=== PATIENT | male | born 1980 | race Two or more races ===

== ENCOUNTER 2020-12-12 23:27 | Inpatient (IN) | payer OTHER ==
[~2020-12-12] VITALS: Ht 177.8 cm; Wt 137.5 kg
--- NOTE | 2020-12-13 00:32 | NUR ---
PA at triage seeing pt while VS being reassessed.
[2020-12-13] MEDS ORDERED: MAALOX/HYOSCYAMINE/LIDOCAINE 45 ML BTL ONE (00:44)
[2020-12-13] MEDS ORDERED: ONDANSETRON ODT 4 MG ONE (00:44)
[2020-12-13] MEDS ORDERED: MAALOX/HYOSCYAMINE/LIDOCAINE 45 ML BTL PO ONE (01:00)
[2020-12-13] MEDS ORDERED: ONDANSETRON ODT 4 MG PO ONE (01:00)
[2020-12-13 01:02] LABS: BASOPHILS % (AUTO) 0 % (0-1); EOSINOPHILS % (AUTO) 0 % (1-7); LYMPHOCYTES % (AUTO) 8 % (22-44); MEAN CORPUSCULAR HGB CONC 33.1 g/dL (33.2-36.2); MEAN PLATELET VOLUME 8.9 fL (7.4-10.4); MONOCYTES % (AUTO) 3 % (2-9); NEUTROPHILS % (AUTO) 89 % (42-75); PLATELET COUNT 267 x10^3/uL (130-400); RED CELL DISTRIBUTION WIDTH 13.6 % (9.4-14.8)
[2020-12-13 01:04] LABS: MD NO
[2020-12-13 01:11] LABS: ALANINE AMINOTRANSFERASE 128 U/L (12-78); ALBUMIN 3.9 g/dL (3.4-5.0); ANION GAP 4 mmol/L (5-15); CALCIUM 9.4 mg/dL (8.5-10.1); CHLORIDE 107 mmol/L (98-107); CREATININE 0.96 mg/dL (0.7-1.3)
[2020-12-13 01:15] LABS: ALKALINE PHOSPHATASE 180 U/L (45-117); BILIRUBIN,TOTAL 1.3 mg/dL (0.2-1.0); TOTAL PROTEIN 8.4 g/dL (6.4-8.2)
[2020-12-13] MEDS ORDERED: SODIUM CHLORIDE 0.9% 1,000ML IVBOLUS ONE (01:30)
[2020-12-13 01:31] LABS: MICROSCOPIC INDICATED
[2020-12-13] MEDS ORDERED: ONDANSETRON 2MG/ML, 2ML ONE (02:58)
[2020-12-13] MEDS ORDERED: MORPHINE SULFATE 4 MG/ML, 1ML ONE (02:58)
[2020-12-13] MEDS ORDERED: ONDANSETRON ODT 4 MG PO PRN (03:00)
[2020-12-13] MEDS ORDERED: BISACODYL 10 MG SUPP PR PRN (03:00)
[2020-12-13] MEDS ORDERED: PROMETHAZINE 25 MG/ML, 1ML IM PRN (03:00)
[2020-12-13] MEDS ORDERED: ENOXAPARIN 40 MG/0.4 ML SQ SCH (03:00)
[2020-12-13] MEDS ORDERED: hydrALAzine 20 MG/ML, 1ML IVPush PRN (03:00)
[2020-12-13] MEDS ORDERED: POLYETHYLENE GLYCOL 17 GM PACKET PO PRN (03:00)
[2020-12-13] MEDS ORDERED: ONDANSETRON 2MG/ML, 2ML IVPush PRN ×2 (03:00)
[2020-12-13] MEDS ORDERED: ONDANSETRON 2MG/ML, 2ML IVPush ONE (03:00)
[2020-12-13] MEDS ORDERED: SODIUM CHLORIDE 0.9% 1,000 ML IV ONE (03:00)
[2020-12-13] MEDS ORDERED: MORPHINE SULFATE 4 MG/ML, 1ML IVPush PRN ×2 (03:00)
--- NOTE | 2020-12-13 03:06 | NUR ---
BREAK RN: PT MEDICATED FOR PAIN. VSS. PT TO BE ADMITTED TO FLOOR. PT PLACED ON 2 L O2 AFTER RECEVING PAIN MEDS. PT HAS NO NEEDS AT THIS TIME
--- NOTE | 2020-12-13 03:16 | NUR ---
report given to maty bagley
[2020-12-13 03:46] VITALS: BP 173/86
[2020-12-13] MEDS: SODIUM CHLORIDE 0.9% 1,000 ML IV SCH ×4 (04:09→19:56)
[2020-12-13] MEDS: morphine SULFATE 10 MG/ML, 1ML IVPush PRN ×4 (04:20→22:53)
[2020-12-13 07:22] VITALS: BP 169/91
[2020-12-13] MEDS: SENNA/DOCUSATE TABLET PO SCH (07:39)
[2020-12-13 12:25] VITALS: BP 147/86
[2020-12-13 18:58] VITALS: BP 154/85
[2020-12-13] MEDS: ENOXAPARIN 30 MG/0.3 ML SQ SCH (22:04)
[2020-12-14] MEDS: SODIUM CHLORIDE 0.9% 1,000 ML IV SCH ×2 (00:53→06:09)
[2020-12-14 00:54] VITALS: BP 149/74
[2020-12-14] MEDS: morphine SULFATE 10 MG/ML, 1ML IVPush PRN ×4 (02:47→21:02)
[2020-12-14 05:19] LABS: BASOPHILS % (AUTO) 0 % (0-1); EOSINOPHILS % (AUTO) 0 % (1-7); LYMPHOCYTES % (AUTO) 13 % (22-44); MEAN CORPUSCULAR HGB CONC 33.3 g/dL (33.2-36.2); MEAN PLATELET VOLUME 9.1 fL (7.4-10.4); MONOCYTES % (AUTO) 7 % (2-9); NEUTROPHILS % (AUTO) 80 % (42-75); PLATELET COUNT 212 x10^3/uL (130-400); RED BLOOD COUNT 4.82 x10^6/uL (4.38-5.82); RED CELL DISTRIBUTION WIDTH 13.6 % (9.4-14.8)
[2020-12-14 05:22] LABS: MD NO
[2020-12-14 05:32] LABS: ALBUMIN 3.3 g/dL (3.4-5.0); ANION GAP 3 mmol/L (5-15); CALCIUM 8.5 mg/dL (8.5-10.1); CHLORIDE 110 mmol/L (98-107)
[2020-12-14 05:41] LABS: ALANINE AMINOTRANSFERASE 91 U/L (12-78); ALKALINE PHOSPHATASE 114 U/L (45-117); BILIRUBIN,TOTAL 1.1 mg/dL (0.2-1.0); CHOL/HDL RATIO 3.6; CHOLESTEROL, TOTAL 160 mg/dL (140-239); CREATININE 0.65 mg/dL (0.7-1.3); HDL CHOL % 28 % (26-37); HDL CHOLESTEROL (DIRECT) 44 mg/dL (40-60); LDL CHOLESTEROL,CALCULATED 101 mg/dL (54-169); LDL/HDL RATIO 2.3 (0.5-3.0); TOTAL PROTEIN 7.5 g/dL (6.4-8.2); TRIGLYCERIDES 75 mg/dL (50-200); VLDL CHOLESTEROL 15 mg/dL (0-25)
[2020-12-14 06:58] VITALS: BP 148/87
[2020-12-14] MEDS: ENOXAPARIN 30 MG/0.3 ML SQ SCH ×2 (07:30→21:02)
[2020-12-14] MEDS: SENNA/DOCUSATE TABLET PO SCH (07:30)
[2020-12-14] MEDS: LACTATED RINGERS 1,000 ML IV SCH ×2 (08:37→16:00)
[2020-12-14] MEDS ORDERED: OMNIPAQUE 350 MG/ML, 50 ML BOTTLE ONE (11:02)
[2020-12-14] MEDS ORDERED: LABETALOL 5MG/ML, 20ML IV PRN (11:30)
[2020-12-14] MEDS ORDERED: OXYcodone 5 MG/5 ML ORAL.SOL UDC PO PRN (11:30)
[2020-12-14] MEDS ORDERED: ACETAMINOPHEN 325 MG TABLET PO PRN (11:30)
[2020-12-14] MEDS ORDERED: morphine SULFATE 10 MG/ML, 1ML IVPush PRN (11:30)
[2020-12-14] MEDS ORDERED: ONDANSETRON 2MG/ML, 2ML IVPush PRN (11:30)
[2020-12-14] MEDS ORDERED: FENTANYL PF 100 MCG/2ML IV PRN (11:30)
[2020-12-14] MEDS ORDERED: MEPERIDINE/PF 25MG/0.5ML IVPush PRN (11:30)
[2020-12-14] MEDS ORDERED: hydrALAzine 20 MG/ML, 1ML IV PRN (11:30)
[2020-12-14] MEDS ORDERED: HYDROmorphone 1 MG/ML, 1ML INJ IVPush PRN (11:30)
[2020-12-14] MEDS ORDERED: MIDAZOLAM 1 MG/ML, 2ML ONE (11:31)
[2020-12-14] MEDS ORDERED: FENTANYL PF 250 MCG/5ML ONE (11:31)
[2020-12-14] MEDS ORDERED: GLYCOPYRROLATE 0.2MG/1ML, 5ML ONE (11:33)
[2020-12-14] MEDS ORDERED: ROCURONIUM 10MG/ML,5ML ONE (11:33)
[2020-12-14] MEDS ORDERED: PROPOFOL 10 MG/ML, 20ML ONE (11:33)
[2020-12-14] MEDS ORDERED: NEOSTIGMINE 1 MG/ML, 10ML ONE (11:33)
[2020-12-14] MEDS ORDERED: CEFAZOLIN 1,000 MG ONE (11:33)
[2020-12-14] MEDS ORDERED: CHLORHEXIDINE 15 ML UDC ONE (11:50)
[2020-12-14] MEDS ORDERED: DILTIAZEM 5 MG/ML, 5ML ONE (12:38)
[2020-12-14] MEDS ORDERED: SUGAMMADEX 200 MG/2 ML IVPush ONE (12:45)
[2020-12-14] MEDS ORDERED: LABETALOL 5MG/ML, 20ML ONE (13:30)
[2020-12-14 14:58] VITALS: BP 124/92
[2020-12-14] MEDS: CEFTRIAXONE 2 GM in DEXTROSE 5% 50 ML IVPB SCH (16:00)
[2020-12-14] MEDS: DILTIAZEM 30 MG TABLET PO SCH ×2 (16:00→21:03)
[2020-12-14] MEDS: OXYcodone IR 5MG TABLET PO PRN (17:25)
[2020-12-14] MEDS: DOXYCYCLINE 100MG TABLET PO SCH (21:02)
[2020-12-14 21:09] VITALS: BP 132/80
[2020-12-15] MEDS: OXYcodone IR 5MG TABLET PO PRN ×3 (00:10→20:02)
[2020-12-15 01:02] VITALS: BP 164/67
[2020-12-15 01:35] VITALS: BP 133/83
[2020-12-15 07:03] VITALS: BP 139/90
[2020-12-15 07:46] LABS: BASOPHILS % (AUTO) 0 % (0-1); EOSINOPHILS % (AUTO) 1 % (1-7); LYMPHOCYTES % (AUTO) 12 % (22-44); MEAN CORPUSCULAR HEMOGLOBIN 27.9 pg (27.5-34.5); MEAN CORPUSCULAR HGB CONC 33.1 g/dL (33.2-36.2); MEAN PLATELET VOLUME 8.5 fL (7.4-10.4); MONOCYTES % (AUTO) 8 % (2-9); NEUTROPHILS % (AUTO) 79 % (42-75); PLATELET COUNT 201 x10^3/uL (130-400); RED BLOOD COUNT 4.81 x10^6/uL (4.38-5.82); RED CELL DISTRIBUTION WIDTH 13.4 % (9.4-14.8)
[2020-12-15 07:48] LABS: MD NO
[2020-12-15 07:58] LABS: ALANINE AMINOTRANSFERASE 64 U/L (12-78); ALBUMIN 2.8 g/dL (3.4-5.0); ANION GAP 4 mmol/L (5-15); CALCIUM 8.3 mg/dL (8.5-10.1); CHLORIDE 105 mmol/L (98-107)
[2020-12-15 08:01] LABS: ALKALINE PHOSPHATASE 97 U/L (45-117); BILIRUBIN,TOTAL 1.1 mg/dL (0.2-1.0); CREATININE 0.51 mg/dL (0.7-1.3)
[2020-12-15] MEDS: ENOXAPARIN 30 MG/0.3 ML SQ SCH ×2 (08:27→20:01)
[2020-12-15] MEDS: DILTIAZEM 30 MG TABLET PO SCH ×3 (08:27→20:01)
[2020-12-15] MEDS: DOXYCYCLINE 100MG TABLET PO SCH ×2 (08:27→20:01)
[2020-12-15] MEDS: LACTATED RINGERS 1,000 ML IV SCH ×2 (08:28)
[2020-12-15] MEDS: SENNA/DOCUSATE TABLET PO SCH ×2 (08:39→09:00)
[2020-12-15 12:58] VITALS: BP 125/72
[2020-12-15] MEDS ORDERED: CALCIUM CARBONATE 500 MG TAB.CHEW PO PRN (14:00)
[2020-12-15] MEDS: CEFTRIAXONE 2 GM in DEXTROSE 5% 50 ML IVPB SCH (16:14)
[2020-12-15 19:28] VITALS: BP 133/79
[2020-12-16] VITALS (14 sets, daily range): BP systolic 119–176; BP diastolic 74–122
[2020-12-16] MEDS: OXYcodone IR 5MG TABLET PO PRN ×2 (00:23→16:16)
[2020-12-16 07:46] LABS: BASOPHILS % (AUTO) 0 % (0-1); EOSINOPHILS % (AUTO) 3 % (1-7); LYMPHOCYTES % (AUTO) 21 % (22-44); MEAN CORPUSCULAR HEMOGLOBIN 27.9 pg (27.5-34.5); MEAN CORPUSCULAR HGB CONC 33.5 g/dL (33.2-36.2); MEAN PLATELET VOLUME 8.8 fL (7.4-10.4); MONOCYTES % (AUTO) 9 % (2-9); NEUTROPHILS % (AUTO) 68 % (42-75); PLATELET COUNT 256 x10^3/uL (130-400); RED BLOOD COUNT 5.23 x10^6/uL (4.38-5.82); RED CELL DISTRIBUTION WIDTH 13.5 % (9.4-14.8)
[2020-12-16 07:54] LABS: MD NO
[2020-12-16 07:59] LABS: ALANINE AMINOTRANSFERASE 54 U/L (12-78); ALBUMIN 2.9 g/dL (3.4-5.0); ANION GAP 6 mmol/L (5-15); CALCIUM 8.6 mg/dL (8.5-10.1); CHLORIDE 104 mmol/L (98-107); CREATININE 0.54 mg/dL (0.7-1.3)
[2020-12-16 08:01] LABS: ALKALINE PHOSPHATASE 99 U/L (45-117); TOTAL PROTEIN 7.6 g/dL (6.4-8.2)
[2020-12-16] MEDS ORDERED: CEFD300C37 PO (08:30)
[2020-12-16] MEDS ORDERED: DILT30TA33 PO ×2 (08:30)
[2020-12-16] MEDS ORDERED: DOXY100T PO (08:30)
[2020-12-16] MEDS: DILTIAZEM 30 MG TABLET PO SCH (08:40)
[2020-12-16] MEDS: ENOXAPARIN 30 MG/0.3 ML SQ SCH ×2 (08:40→20:20)
[2020-12-16] MEDS: DOXYCYCLINE 100MG TABLET PO SCH ×2 (08:40→20:31)
[2020-12-16] MEDS: SENNA/DOCUSATE TABLET PO SCH (08:41)
[2020-12-16] MEDS ORDERED: BISACODYL 10 MG SUPP PR ONE (09:00)
[2020-12-16] MEDS: DILTIAZEM 120 MG CAP.ER.12H PO SCH ×2 (11:56→22:15)
[2020-12-16] MEDS: CEFTRIAXONE 2 GM in DEXTROSE 5% 50 ML IVPB SCH (16:09)
[2020-12-16] MEDS ORDERED: POTASSIUM CHLORIDE 20 MEQ TAB.ER.PRT PO ONE (22:00)
[2020-12-17] MEDS ORDERED: METOPROLOL 1 MG/ML, 5ML IVPush ONE (00:30)
[2020-12-17 00:49] VITALS: BP 134/96
[2020-12-17] MEDS ORDERED: MELATONIN 5 MG TABLET ONE (01:18)
[2020-12-17 01:21] VITALS: BP 155/102
[2020-12-17 03:02] VITALS: BP 137/95
[2020-12-17 06:08] VITALS: BP 136/87
[2020-12-17] MEDS ORDERED: DILTIAZEM 120 MG CAP.ER.12H PO SCH (09:00)
[2020-12-17] MEDS: SENNA/DOCUSATE TABLET PO SCH (09:00)
[2020-12-17] MEDS: ENOXAPARIN 30 MG/0.3 ML SQ SCH (09:24)
[2020-12-17] MEDS: DOXYCYCLINE 100MG TABLET PO SCH (09:24)
[2020-12-17 11:49] VITALS: BP 145/89
[2020-12-17] MEDS: CEFTRIAXONE 2 GM in DEXTROSE 5% 50 ML IVPB SCH (12:48)
[2020-12-17] MEDS ORDERED: DILT120C80 PO ×2 (13:55→15:55)
[2020-12-17] MEDS ORDERED: MELATONIN 5 MG TABLET PO SCH (21:00)
== END 2020-12-17 14:46 | disposition home or self-care (01) | DRG 444 ==
LOC: ED 23:57 → EDIP 12-13 03:35 → 3N 12-13 03:36 → 4EST 12-14 14:39 → 4WST 12-16 12:42 → DCLOUNGE 12-17 14:40
PROVIDERS: ADMIT Internal Medicine; ATTEND Hospitalist
PROC: 0FC98ZZ Extirpation of Matter from Common Bile Duct, Via Natural or Artificial Opening Endoscopic (ICD-10-PCS; principal; 2020-12-14 12:00)
DX: K80.70 Calculus of gallbladder and bile duct without cholecystitis without obstruction (principal); K85.10 Biliary acute pancreatitis without necrosis or infection; J18.9 Pneumonia, unspecified organism; I48.91 Unspecified atrial fibrillation; E86.0 Dehydration; Z20.822 Contact with and (suspected) exposure to COVID-19; Z87.891 Personal history of nicotine dependence; Z83.3 Family history of diabetes mellitus; Z88.0 Allergy status to penicillin; Z79.899 Other long term (current) drug therapy
CPT/HCPCS: 36415; 71045; 74181; 74328; 76700; 80053; 80061; 81001; 83036; 83690; 83735; 84100; 84443; 85025; 86140; 87040; 87086; 87635; 93005; 93306; 96374; 96375; 99285; G0378; J0690; J0696; J1650; J2250; J2405; J2704; J2710; J3010; Q0162; Q9967; C1769; J0360; J2270; J7030; J7120